=== PATIENT | male | born 1960 | race Hispanic/Latino ===

== ENCOUNTER 2017-12-15 11:48 | Outpatient (CLI) | payer BC ==
--- NOTE | 2017-12-15 13:11 | XRay Report ---
RIGHT ELBOW, 3 views: HISTORY: right elbow pain. The bony architecture is intact without evidence of fracture or dislocation. No significant soft tissue abnormality is seen. IMPRESSION: Normal right elbow.
--- NOTE | 2017-12-15 13:11 | XRay Report ---
ROUTINE CHEST, TWO VIEWS: HISTORY: Chronic obstructive pulmonary disease. There appears to be mild hyperinflation which is unchanged since 10/12/14. The lungs are clear. No pleural fluid or pneumothorax. Normal heart and mediastinal structures. Normal bony thorax. IMPRESSION: Mild hyperinflation. No change since 10/12/14.
--- NOTE | 2017-12-15 13:14 | XRay Report ---
RIGHT HAND, 3 views: History: Pain and unspecified joint Normal bone mineralization. No evidence for fracture, malalignment or bone lesion. Moderate joint space narrowing is identified at the third metacarpophalangeal joint. There appears to be a well-corticated bony fragment between the third and fourth metacarpal heads which may represent chronic traumatic injury. The remaining bony structures and joint spaces are unremarkable. Normal soft tissues. IMPRESSION: Mild to moderate degenerative changes at the third metacarpophalangeal joint. This may be posttraumatic in nature. Please correlate with the patient's clinical history.
== END 2017-12-15 11:49 | disposition home or self-care (01) ==
LOC: XRAY 11:48
PROVIDERS: ATTEND Internal Medicine
DX: M19.041 Primary osteoarthritis, right hand (principal); J44.9 Chronic obstructive pulmonary disease, unspecified
CPT/HCPCS: 71046

== ENCOUNTER 2018-12-14 08:09 | Outpatient (CLI) | payer OTHER ==
[2018-12-14 11:07] LABS: Hematocrit 57.4 % (35.5-45.6); Hemoglobin 19.9 gm/dl (11.8-15.2); Mean Corpuscular HGB Conc 35 % (32-34); Mean Corpuscular Volume 91 fl (84-94); Platelet Count 255 K/mm3 (140-440); Red Blood Count 6.32 M/mm3 (3.65-5.03); Red Cell Distribution Width 13.6 % (13.2-15.2)
[2018-12-14 13:25] LABS: Albumin 4.6 g/dL (3.9-5); Chol/HDL Ratio 2.81 %
[2018-12-17 07:43] LABS: Vitamin D, 25-OH, D2 <4 ng/mL
== END 2018-12-14 08:10 | disposition home or self-care (01) ==
LOC: LAB 08:09
PROVIDERS: ATTEND Internal Medicine
DX: Z13.21 Encounter for screening for nutritional disorder (principal); Z13.1 Encounter for screening for diabetes mellitus; Z12.5 Encounter for screening for malignant neoplasm of prostate
CPT/HCPCS: 36415; 80053; 80061; 82306; 82607; 83036; 84153; 84443; 85027

== ENCOUNTER 2019-04-09 10:53 | Outpatient (CLI) | payer OTHER ==
[2019-04-09 11:14] LABS: Basophils # (Auto) 0.1 K/mm3 (0.0-0.1); Basophils % (Auto) 1.3 % (0.0-1.8); Eosinophils # (Auto) 0.6 K/mm3 (0.0-0.4); Eosinophils % (Auto) 6.7 % (0.0-4.3); Hematocrit 57.4 % (35.5-45.6); Hemoglobin 19.1 gm/dl (11.8-15.2); Lymphocytes # (Auto) 1.8 K/mm3 (1.2-5.4); Lymphocytes % (Auto) 21.4 % (13.4-35.0); Mean Corpuscular HGB Conc 33 % (32-34); Mean Corpuscular Volume 91 fl (84-94); Monocytes # (Auto) 0.7 K/mm3 (0.0-0.8); Monocytes % (Auto) 7.6 % (0.0-7.3); Platelet Count 297 K/mm3 (140-440); Red Blood Count 6.31 M/mm3 (3.65-5.03); Red Cell Distribution Width 13.5 % (13.2-15.2)
[2019-04-09 11:34] LABS: Chol/HDL Ratio 3.06 %
== END 2019-04-09 10:54 | disposition home or self-care (01) ==
LOC: LAB 10:53
PROVIDERS: ATTEND Internal Medicine
DX: D75.1 Secondary polycythemia (principal); E11.9 Type 2 diabetes mellitus without complications; E78.5 Hyperlipidemia, unspecified; E87.5 Hyperkalemia
CPT/HCPCS: 36415; 80061; 83036; 84132; 85025